=== PATIENT | male | born 1970 | race American Indian/Alaskan Native ===

== ENCOUNTER 2016-06-24 13:25 | Emergency (ER) | payer OTHER ==
[2016-06-24 13:47] VITALS: BP 106/69
--- NOTE | 2016-06-24 14:08 | Emergency Department Report ---
Chief Complaint: Chest Pain Stated Complaint: BACK/CHEST PAIN/SOB Time Seen by Provider: 06/24/16 14:00 - HPI History of Present Illness: 46-year-old male presents today with chest pain since yesterday 0600 hours. Positive for shortness of breath and left-sided upper back pain. Denies fever, chills, nausea, vomiting, cold symptoms, abdominal pain. - ROS Review of Systems: Per HPI - Exam Vital Signs: Vital Signs 06/24/16 13:40 Temperature 97.7 F Pulse Rate 51 L Respiratory 16 Rate Blood Pressure 106/69 O2 Sat by Pulse 100 Oximetry Physical Exam: General: 46-year-old male in no acute distress. Well-developed, well-nourished. CV: Regular rate and rhythm. Lungs: Clear to auscultation bilaterally. Abdomen: No tenderness to palpation. MSE screening note: Focused history and physical exam performed. Due to findings the following was ordered: ED Disposition for MSE Condition: Stable
--- NOTE | 2016-06-24 14:33 | XRay Report ---
CHEST 2 VIEWS INDICATION: Shortness of breath, chest pain on breathing in. COMPARISON: None similar at this institution. FINDINGS: PA and lateral chest radiographs demonstrate normal cardiomediastinal silhouette. Clear lungs. Intact bones. CONCLUSION: No acute disease in the chest. Thank you for the opportunity to participate in this patient's care.
[2016-06-24 16:09] LABS: Basophils % (Auto) 0.5 % (0.0-1.8); Eosinophils % (Auto) 5.1 % (0.0-4.3); Hematocrit 45.8 % (35.5-45.6); Hemoglobin 15.1 gm/dl (11.8-15.2); Mean Corpuscular HGB Conc 33 % (32-34); Mean Corpuscular Hemoglobin 33 pg (28-32); Mean Corpuscular Volume 99 fl (84-94); Platelet Count 201 K/mm3 (140-440); Red Blood Count 4.62 M/mm3 (3.65-5.03); Red Cell Distribution Width 13.9 % (13.2-15.2); White Blood Count 5.8 K/mm3 (4.5-11.0)
[2016-06-24 16:37] LABS: Creatine Kinase MB 2.5 ng/mL (0.0-4.0)
[2016-06-24 16:39] LABS: BUN/Creatinine Ratio 12.85; Blood Urea Nitrogen 9 mg/dL (9-20); Carbon Dioxide 24 mmol/L (22-30); Chloride 103.4 mmol/L (98-107); Creatine Kinase 146 units/L (55-170); Glucose 85 mg/dL (75-100); Lipase 33 units/L (13-60); Potassium 4.6 mmol/L (3.6-5.0); Sodium 139 mmol/L (137-145)
[2016-06-24 16:43] LABS: Anion Gap 16 mmol/L
--- NOTE | 2016-06-26 14:02 | ED Elopement Review ---
ED Pt Elopement review - Results review Lab results: Laboratory Tests 06/24/16 06/24/16 15:50 15:50 WBC 5.8 RBC 4.62 Hgb 15.1 Hct 45.8 H MCV 99 H MCH 33 H MCHC 33 RDW 13.9 Plt Count 201 Lymph % (Auto) 36.0 H [place] % (Auto) 8.2 H Eos % (Auto) 5.1 H Baso % (Auto) 0.5 Lymph # 2.1 [place] # 0.5 Eos # 0.3 Baso # 0.0 Seg Neutrophils % 50.2 Seg Neutrophils # 2.9 Sodium 139 Potassium 4.6 Chloride 103.4 Carbon Dioxide 24 Anion Gap 16 BUN 9 Creatinine 0.7 L Estimated GFR > 60 BUN/Creatinine Ratio 12.85 Glucose 85 Calcium 9.0 Total Creatine Kinase 146 CK-MB (CK-2) 2.5 CK-MB (CK-2) Rel Index 1.7 Troponin T < 0.010 Lipase 33 - Call Back decision Pt Call Back Decision: No action required
== END 2016-06-24 23:50 | disposition left against medical advice (07) ==
LOC: ED 13:25
DX: R07.9 Chest pain, unspecified (principal); R06.02 Shortness of breath; M54.6 Pain in thoracic spine; Z53.21 Procedure and treatment not carried out due to patient leaving prior to being seen by health care provider
CPT/HCPCS: 36415; 71020; 80048; 82550; 82553; 83690; 84484; 85025; 93005; 93010